=== PATIENT | male | born 1980 | race Caucasian/White ===

== ENCOUNTER → 2019-05-05 10:56 | Outpatient (CLI) | payer BC, SELFPAY ==
--- NOTE | 2019-05-05 11:11 | CT_ITS ---
CT elbow LT wo con INDICATION: Elbow pain following injury, inability to straighten elbow., Evaluate elbow fracture ITS.REASON: radial head fracture ORDERING PHYSICIAN: Domonique Lindsey MD PATIENT AGE: 38 years COMPARISON: 04/29/2019 TECHNIQUE: Axial images are obtained without contrast. Sagittal and coronal reformatted images are reviewed as well. All CT scans at the facility use one or more dose reduction, viz: automated exposure control, ma/kV adjustment per patient size (including targeted exams where dose is matched to indication, i.e. head), or iterative reconstruction technique. FINDINGS: There is comminuted fracture involving the radial head with minimal depression of the anterior fragment by 1 to 2 mm. The fracture extends into the the base of the radial head toward the neck of the radius anteriorly. There is a separate bony fragment noted which is linear in nature and measures approximately 8 x 2 mm and is situated at the lateral epicondyles. This is consistent with an avulsion fracture. The donor site and may be at the lateral aspect of the radial head articular surface as that part of the radius has a somewhat irregular appearance.. No other fracture is evident. There is soft tissue swelling dorsally and laterally at the elbow. IMPRESSION: Comminuted nondisplaced fracture at the radial head with only minimal depression. There is an avulsion fracture which is located along the lateral epicondylar region which may actually be from the lateral surface of the radial head.
== END ==
PROVIDERS: PCP Family Medicine; Visit Provider Orthopaedic Surgery
DX: S52.123A Displaced fracture of head of unspecified radius, initial encounter for closed fracture (principal)
CPT/HCPCS: 73200

== ENCOUNTER → 2019-05-19 12:17 | Outpatient (CLI) | payer BC, SELFPAY ==
--- NOTE | 2019-05-19 12:21 | XR_ITS ---
XR elbow LT min 3V HISTORY: Follow-up radial head fracture ITS.REASON: lt radial head fx ORDERING PHYSICIAN: Domonique Lindsey MD PATIENT AGE: 39 years COMPARISON: 04/29/2019 FINDINGS: Comminuted fracture involves radial head is again noted. The fracture is nondisplaced. There is good alignment. There is an avulsion fracture fragment which is at the lateral aspect of the elbow joint not significantly changed. Positive fat pad once again noted. IMPRESSION: Overall no change in the comminuted radial head fracture with an associated displaced avulsion fracture of the radial head
== END ==
PROVIDERS: PCP Family Medicine; Visit Provider Orthopaedic Surgery
DX: S52.125A Nondisplaced fracture of head of left radius, initial encounter for closed fracture (principal)
CPT/HCPCS: 73080

== ENCOUNTER → 2019-06-09 13:31 | Outpatient (CLI) | payer BC, SELFPAY ==
--- NOTE | 2019-06-09 13:36 | XR_ITS ---
XR elbow LT min 3V HISTORY: ITS.REASON: lt radial head fx ORDERING PHYSICIAN: Domonique Lindsey MD PATIENT AGE: 39 years COMPARISON: 04/29/2019. FINDINGS: There are some persistent displaced bone fragments lateral to the joint space. There are still linear fracture line involving the articular cortex of the radial head and the lateral neck of the radius. Alignment is anatomical. Bone density is normal. There is no indirect evidence of a joint effusion. Impression: Incomplete healing of the nondisplaced radial neck and head fracture. There is anatomic alignment of the fracture fragments and there is no abnormal angulation.
== END ==
PROVIDERS: PCP Family Medicine; Visit Provider Orthopaedic Surgery
DX: S52.122A Displaced fracture of head of left radius, initial encounter for closed fracture (principal)
CPT/HCPCS: 73080

== ENCOUNTER 2019-09-03 09:30 | Outpatient (RCR) | payer BC, SELFPAY ==
--- NOTE | 2019-05-14 16:06 | HMH.OTOPEV ---
OT Inpatient Evaluation Rehab OT Outpatient Eval Start: 05/14/19 15:52 Freq: Status: Active Protocol: Document 05/14/19 15:53 RMARSHALL ([facility]14[facility]19 [id number] Electronically Signed By Sofía Ray OT 05/14/19 15:53 Outpatient Therapy Subjective History Subjective History Pt is a 38 year old male who reports to therapy for initial evaluation to left elbow. Pt reports he fell down a flight of stairs (on 04/29/19) resulting in a radial head fracture to left elbow. Pt is left hand dominant. Pt has been in a sling since the injury. Pt demonstrates with decreased AROM and strength at left elbow. Pt will be seen twice a week in order to increase overall functional use. Chief Complaint Pain,Stiff,Weakness Symptom Type Ache,Throb,Sharp,Dull Symptoms Relieved By Rest/Positioning Symptoms Aggravated By Physical Activity,Twisting, Lifting Prior Functional Limitations None Current Functional Limitations Reaching,Lifting,Housework, Dressing,Driving,Sleeping, Recreation Activity Symptom Description Intermittent,Activity Dependent Level of pain today (0-10) 2 Pain scale - at its best (0-10) 0 Pain scale - at its worst (0-10) 8 Shoulder/Elbow Eval Shoulder Objective Measurements Elbow Objective Measurements Elbow ROM Left full ROM elbow exam standard right decreased ROM elbow exam standard left pain with active ROM elbow exam standard left pain with passive ROM elbow exam left standard Elbow Extension Active Range of Motion ( 0-46 degrees degrees) Elbow Extension Passive Range of Motion 0-40 degrees (degrees) Elbow Flexion Active Range of Motion ( 115 degrees degrees) Elbow Flexion Passive Range of Motion ( 125 degrees degrees) Elbow Pronation of Forearm Range of 60 degrees Motion (degrees) Elbow Supination of Forearm Range of 35 Motion (degrees) Elbow MMT Elbow Flexion Strength Grade 3 Fair Biceps Brachii Strength Grade 3 Fair Brachioradialis Strength Grade 3 Fair Brachialis Strength Grade 3 Fair Brachialis Strength Grade (Flexion) 3+ Fair+ Elbow Extension Strength Grade 3 Fair
--- NOTE | 2019-06-26 14:37 | HMH.RHREAS ---
Rehab Reassessment Rehab OP Re-assessment Start: 06/26/19 13:36 Freq: Status: Active Protocol: Document 06/26/19 13:36 TANISHA (Rec: 06/26/19 14:37 JAIROL [id number]) Electronically Signed By Sofía Ray OT 06/26/19 13:36 Rehab Re-assessment Subjective Subjective I do see improvements. Objective Objective Notes Pt continues to be seen twice a week in order to address L elbow deficits. Pt engages in L elbow strengthening exercises each session. Pt is also passively ranged a L elbow in supine in flexion, extension, supination, and pronation. Modalities are provided in order to decrease pain/inflammation at left elbow. Assessment Progress Assessment Progressing as Expected Assessment Notes Pt demonstrates improvement in AROM and strength at left elbow. However, pt continues to have most pain in flexion at left elbow. Pt believes he is currently 75% better since beginning therapy. As of now when his elbow does cause pain he rates it at a 4/10. Current L elbow AROM Flex: 132 Ext: 0-13 Sup: 90 Pro: 90 Patient goals met Short term goals have been met Goals Not Met penitentiary goals Revised Goals Review care home goals written on initial eval and continue progressing towards them. Plan Plan Continue with OT plan of care at this time. Frequency of Therapy 2x's a week Duration of therapy 4 more weeks Time and Billing Re-Eval Time 15 Re-Eval Billing Units 1 PHYSICIAN CERTIFICATION: I certify the specified therapy services for Anup Loredo are required, authorized, and reviewed every 30 days.
== END 2019-09-03 09:35 | disposition home or self-care (01) ==
LOC: OT 09:30
PROVIDERS: Visit Provider Orthopaedic Surgery
DX: S52.125A Nondisplaced fracture of head of left radius, initial encounter for closed fracture (principal)
CPT/HCPCS: 97014; 97110; 97140; 97164; 97166; G0283

== ENCOUNTER 2021-02-26 14:50 | Emergency (ER) | payer BC, SELFPAY ==
[2021-02-26 14:59] VITALS: BP 146/100; PULSE 76; RESP 14; TEMP 36.6; O2SAT 99; BMI 31.9
--- NOTE | 2021-02-26 15:07 | HMH.EDUTC ---
[facility] [place] Disposition Clinical Impression: Abdominal pain Qualifiers: Abdominal location: epigastric Qualified Code(s): R10.13 - Epigastric pain Disposition: Still a Patient Condition on Discharge: Good Instructions: DI for Abdominal Pain-Adult Additional Instructions: follow up with pcp may need egd if symptoms worsen or do not improve return or be seen in ed med as ordered Prescriptions: Famotidine [Pepcid 20mg Tablet] 20 mg PO DAILY #30 tab Prescription Printed Referrals: Mk Degroot MD [Primary Care Provider] - Time of Disposition: 15:26 (sent to ed for eval) Medical Decision Making - Bulmaro Inquiry Pt receiving controlled substance: No Vital Signs: 02/26/21 14:59 Temperature 97.8 F Temperature Source Temporal Artery Scan Pulse Rate [Right Brachial] 76 Respiratory Rate 14 Blood Pressure [Right Arm] 146/100 H Blood Pressure Mean [Right Arm] 115 Blood Pressure Source [Right Arm] Automatic Cuff Blood Pressure Position [Right Arm] Sitting 02 Sat by Pulse Oximetry 99 Oxygen Delivery Method Room Air [facility] [place] HPI - General Chief complaint: Urgent Treatment Center Stated complaint: abdominal pain Time Seen by Provider: 02/26/21 15:07 Mode of Arrival: Ambulatory Source of Information: Patient Limitations: No Limitations Description of Symptoms (Recalled from Triage Doc. by RN): abdomial pain for 1 year, but worse this morning HEENT Symptoms (Recalled from RN notes): No Resp Symptoms (Recalled from RN notes): No Skin Symptoms (Recalled from RN notes): No MS Symptoms (Recalled from RN notes): No Functional Status (Recalled from RN notes): n/a - History of Present Illness Provider Complaint: 40 yr old male presents for abdomial pain epigastric for 1 year off and on, but worse this morning. pt denies nausea and vomiting. pt states he has not eaten anything today. Pt states he woke up with abd cramping - Related Data Previous Rx's Medication Instructions Recorded Famotidine [Pepcid 20mg Tablet] 20 mg PO DAILY #30 tab 02/26/21 Allergies Allergy/AdvReac Type Severity Reaction Status Date / Time No Known Allergies Allergy Verified 02/26/21 14:56 - Worker's Comp Is this a Worker's Comp case?: No [facility] History - Hepatitis A Screen Drug use history?: No High risk sexual behaviors?: No History of sexually transmitted infection?: No Currently employed?: No Childcare worker?: No Do you have indoor plumbing?: Yes Do you have electricity?: Yes Attestation statement:: This patient has been screened for Hepatitis A risk factors. I have reviewed the patient's past medical history: Yes Medical History: Denies:: Cancer, Diabetes Mellitus Type 1, Diabetes Mellitus Type 2, MRSA Amputation: No - Social History Smoking Status: Never smoker Alcohol Intake: never Occupational Status: employed Housing: house Family Hx:: No significant family history ROS Obtained: Yes Systems reviewed as appropriate & no additional complaints - Constitutional Constitutional: Reports system reviewed and no additional complaints, except as docu, Denies chills, Denies fatigue, Denies fever(s) - Eyes Eyes: Reports system reviewed and no additional complaints, except as docu, Denies blurry vision - ENT Ears, Nose, Mouth, and Throat: Reports system reviewed and no additional complaints, except as docu, Denies bad breath - Cardiovascular Cardiovascular: Reports system reviewed and no additional complaints, except as docu, Denies chest pain at rest - Respiratory Respiratory: Reports system reviewed and no additional complaints, except as docu, Denies change in phlegm color - Gastrointestinal Gastrointestingal: Reports: system reviewed and no additional complaints, except as docu, abdominal pain, heartburn. Denies: nausea, vomiting - Genitourinary Male Genitourinary: Reports system reviewed and no additional complaints, except as docu - Musculoskeletal Musculoskeletal: Reports system reviewed and no a
--- NOTE | 2021-02-26 15:47 | CT_ITS ---
PROCEDURE: CT ABDOMEN PELVIS W CON CLINICAL INDICATION: LUQ abd pain Left upper quadrant abdominal pain COMPARISON: No exams were available for comparison TECHNIQUE: IV Contrast: 75ML Isovue 370 Oral Contrast None Axial images obtained with sagittal and coronal reformats. All CT scans at the facility use one or more dose reduction, viz: automated exposure control, ma/kV adjustment per patient size (including targeted exams where dose is matched to indication, i.e. head), or iterative reconstruction technique. FINDINGS: Liver, gallbladder, spleen, adrenal glands, pancreas, and kidneys have an unremarkable appearance. No renal or ureteral calculi. Minimal amount of gas noted in the distal esophagus which could be seen with reflux. No evidence of appendicitis. Scattered colonic diverticula are present. No evidence of diverticulitis. No pelvic mass or abnormal fluid collection. No acute bony findings. IMPRESSION: No acute finding Dictated by: Florencio Nloan MD 02/27/2021 07:55 Florencio Nolan MD in [place] 02/27/2021 07:55
--- NOTE | 2021-02-26 15:47 | HMH.EDABDPAI ---
ED Disposition Clinical Impression: GERD (gastroesophageal reflux disease) Qualifiers: Esophagitis presence: with esophagitis Esophagitis bleeding: without hemorrhage Qualified Code(s): K21.00 - Gastro-esophageal reflux disease with esophagitis, without bleeding Disposition: Home, Self-Care Condition on Discharge: Good Instructions: DI for Abdominal Pain-Adult Additional Instructions: follow up with pcp may need egd if symptoms worsen or do not improve return or be seen in ed med as ordered Prescriptions: Famotidine [Pepcid 20mg Tablet] 20 mg PO DAILY #30 tab Prescription Printed Referrals: Mk Degroot MD [Primary Care Provider] - - Critical Care Critical Care Time: No Attestation: On 02/26/21, the high probability of a clinically significant, sudden or life threatening deterioration of the following system(s) required my full and direct attention, intervention and personal management. The time I documented below is in addition to time spent performing reported procedures but includes the following listed in this critical care notation. Medical Decision Making - Medical Records Medical records reviewed: Yes: I reviewed the patient's medical records. - Bulmaro Inquiry Pt receiving controlled substance: No Vital Signs: 02/26/21 14:59 02/26/21 16:05 02/26/21 16:23 Temperature 97.8 F 98.3 F Temperature Source Temporal Artery Scan Oral Pulse Rate [Right Brachial] 76 60 58 L Respiratory Rate 14 18 18 Blood Pressure [Right Arm] 146/100 H 141/104 H 132/87 Blood Pressure Mean [Right Arm] 115 116 102 Blood Pressure Source [Right Arm] Automatic Cuff Automatic Cuff Blood Pressure Position [Right Arm] Sitting Sitting 02 Sat by Pulse Oximetry 99 98 96 Oxygen Delivery Method Room Air Room Air - Lab Data Lab results reviewed: Yes: I reviewed the patient's lab results. Lab Results 02/26/21 16:20: WBC 7.8, RBC 5.23, Hgb 16.5, Hct 48.6, MCV 92.8, MCH 31.5 H, MCHC 34.0, RDW 13.5, Plt Count 249, MPV 7.3 L, Neut % (Auto) 65.5, Lymph % (Auto) 25.5, [place] % (Auto) 6.9, Eos % (Auto) 1.4, Baso % (Auto) 0.8, Neut # (Auto) 5.1, Lymph # (Auto) 2.0, [place] # (Auto) 0.5, Eos # (Auto) 0.1, Baso # (Auto) 0.1 02/26/21 16:20: Sodium 141, Potassium 4.7, Chloride 107, Carbon Dioxide 29, Anion Gap 9.7, BUN 18, Creatinine 1.00, Estimated Creat Clear 134, Estimated GFR 83, Est GFR ( Amer) 101, Glucose 100, Calcium 9.5, Total Bilirubin 0.5, AST 28, ALT 30, Alkaline Phosphatase 75, Total Protein 7.4, Albumin 4.6, Globulin 2.8, Albumin/Globulin Ratio 1.6, Lipase 89 Result diagrams: 02/26/21 16:20 02/26/21 16:20 Orders (Tests/Meds): ED MEDICATIONS Generic Name Dose Route Start Last Admin Trade Name Freq PRN Reason Stop Dose Admin Sodium Chloride 10 ml 02/26/21 15:47 Sodium Chloride 0.9% 10ml Vial IV 03/28/21 15:46 NEEDED PRN dilute protonix Discontinued Medications Generic Name Dose Route Start Last Admin Trade Name Freq PRN Reason Stop Dose Admin Belladonna Alkaloids 60 ml 02/26/21 15:30 02/26/21 15:00 Gi Cocktail 60ml Udc PO 02/26/21 15:31 60 ml ONCE ONE Administration Dicyclomine HCl 20 mg 02/26/21 15:46 02/26/21 16:57 Dicyclomine 20 Mg/2ml Vial IM 02/26/21 15:47 20 mg ONCE ONE Administration Iopamidol 75 ml 02/26/21 16:29 02/26/21 16:30 Iopamidol-370 (76%);100ml Bottle IV 02/26/21 16:30 75 ml ONCE ONE Administration Ketorolac Tromethamine 30 mg 02/26/21 15:46 02/26/21 16:57 Ketorolac 30mg/Ml Vial IV 02/26/21 15:47 30 mg ONCE ONE Administration Pantoprazole Sodium 40 mg 02/26/21 15:47 02/26/21 16:57 Pantoprazole 40mg Vial IV 02/26/21 15:48 40 mg ONCE ONE Administration Sodium Chloride 10 ml 02/26/21 16:29 02/26/21 16:30 Sodium Chloride 0.9% 10ml Syr (Rad Only) IV 02/26/21 16:30 10 ml ONCE ONE Administration ORDERS Category Date Time Status CT abdomen pelvis w con Stat Cat Scan 02/26/21 15:47 Taken -
[2021-02-26 16:05] VITALS: BP 141/104; PULSE 60; RESP 18; TEMP 36.8; O2SAT 98; BMI 31.8
--- NOTE | 2021-02-26 16:21 | PC.NURSE ---
pt gone to ct
[2021-02-26 16:23] VITALS: BP 132/87; PULSE 58; RESP 18; O2SAT 96
[2021-02-26 16:29] LABS: Basophils # 0.1 K/mm3 (0-0.2); Basophils % 0.8 % (0.1-2.0); Eosinophils # 0.1 K/mm3 (0.0-0.4); Eosinophils % 1.4 % (0.1-12.0); Hematocrit 48.6 % (42.0-52.0); Hemoglobin 16.5 g/dL (14.1-18.0); Lymphocytes % 25.5 % (10-50); Mean Corpuscular Hemoglobin 31.5 pg (27.0-31.2); Mean Corpuscular Volume 92.8 fl (80-94); Mean Platelet Volume 7.3 fl (7.4-10.4); Monocytes # 0.5 K/mm3 (0.1-1.0); Monocytes % 6.9 % (1.7-9.3); Neutrophils # 5.1 K/mm3 (1.8-7.8); Neutrophils % 65.5 % (37.0-80.0); Platelet Count 249 K/mm3 (142-424); Red Blood Count 5.23 M/mm3 (4.60-6.20); Red Cell Distribution Width 13.5 % (11.5-17.5); White Blood Count 7.8 K/mm3 (4.8-10.8)
[2021-02-26 16:33] LABS: Chloride 107 mmol/L (98-107); Potassium 4.7 mmoL/L (3.5-5.1); Sodium 141 mmol/L (136-145)
[2021-02-26 16:35] LABS: Blood Urea Nitrogen 18 mg/dl (9-20); Creatinine Clearance Estimated 134 mL/min (50-200); Estimated Glomerular Filt Rate 83 ml/min (>60); GFR (African American) 101 ML/MIN (>60)
[2021-02-26 16:36] LABS: Alanine Aminotransferase 30 U/L (12-78); Albumin Level 4.6 g/dl (3.5-5.0); Albumin/Globulin Ratio 1.6 (1.1-1.8); Alkaline Phosphatase 75 U/L (38-126); Anion Gap 9.7 mEq/L (5-15); Aspartate Amino Transferase 28 U/L (17-59); Bilirubin,Total 0.5 mg/dl (0.2-1.3); Calcium 9.5 mg/dl (8.4-10.2); Carbon Dioxide 29 mmol/L (22.0-30.0); Globulin 2.8 g/dL (1.3-3.2); Glucose 100 mg/dl (74-100); Lipase 89 U/L (23-300); Total Protein,Serum 7.4 g/dl (6.3-8.2)
[2021-02-26 17:54] VITALS: BP 136/92; PULSE 57; RESP 18; TEMP 36.8; O2SAT 100
== END 2021-02-26 17:54 | disposition home or self-care (01) ==
LOC: UTC 15:28 → ER 15:32
PROVIDERS: Emergency Provider Emergency Medicine; PCP Family Medicine
DX: R10.13 Epigastric pain (principal); K21.9 Gastro-esophageal reflux disease without esophagitis
CPT/HCPCS: 74177; 80053; 83690; 85025; 96367; 96372; 96374; 99283; Q9967

== ENCOUNTER 2022-01-22 14:49 | Emergency (ER) | payer BC, SELFPAY ==
[2022-01-22 14:50] VITALS: BP 137/89; PULSE 85; RESP 19; TEMP 37.2; O2SAT 97; BMI 33.0
--- NOTE | 2022-01-22 15:11 | HMH.EDUTC ---
[facility] [place] Clinical Impression: L[place] U eye disease of both eyes Disposition: Home, Self-Care Condition on Discharge: Good Instructions: DI for Conjunctivitis Additional Instructions: follow up with pcp in am if symtpoms worsen return or be seen in ed Prescriptions: Sulfacetamide Sodium [Sulf-10% opth soln 15mL] 1 drp OP TID 7 Days #15 ml Transmission Status: Pending to [id number] Referrals: Mk Degroot MD [Primary Care Provider] - Time of Disposition: 15:16 Medical Decision Making - Bulmaro Inquiry Pt receiving controlled substance: No Vital Signs: 01/22/22 14:50 Temperature 98.9 F Temperature Source Oral Pulse Rate [Right Brachial] 85 Respiratory Rate 19 Blood Pressure [Right Arm] 137/89 Blood Pressure Mean [Right Arm] 105 Blood Pressure Source [Right Arm] Automatic Cuff Blood Pressure Position [Right Arm] Sitting 02 Sat by Pulse Oximetry 97 Oxygen Delivery Method Room Air [facility] [place] HPI - General Chief complaint: Urgent Treatment Center Stated complaint: bilateral eye pain and redness Time Seen by Provider: 01/22/22 15:11 Mode of Arrival: Ambulatory Source of Information: Patient Limitations: No Limitations Description of Symptoms (Recalled from Triage Doc. by RN): PATIENT C/O REDNESS AND SWELLING TO BILATERAL EYES SINCE LAST SUNDAY HEENT Symptoms (Recalled from RN notes): Yes Resp Symptoms (Recalled from RN notes): No Skin Symptoms (Recalled from RN notes): No MS Symptoms (Recalled from RN notes): No Functional Status (Recalled from RN notes): WNL - History of Present Illness Provider Complaint: 41 yr old male presents for chris red eyes with some discharge. pt states he has tried allergy med but it did not help. - Related Data Previous Rx's Medication Instructions Recorded Famotidine [Pepcid 20mg Tablet] 20 mg PO DAILY #30 tab 02/26/21 Sucralfate [Carafate 1gm Tab] 1 gm PO ACHS #60 tab 02/26/21 Sulfacetamide Sodium [Sulf-10% 1 drp OP TID 7 Days #15 ml 01/22/22 opth soln 15mL] Allergies Allergy/AdvReac Type Severity Reaction Status Date / Time No Known Allergies Allergy Verified 02/26/21 14:56 - Worker's Comp Is this a Worker's Comp case?: No [facility] History - Hepatitis A Screen Drug use history?: No High risk sexual behaviors?: No History of sexually transmitted infection?: No Currently employed?: No Childcare worker?: No Do you have indoor plumbing?: Yes Do you have electricity?: Yes Attestation statement:: This patient has been screened for Hepatitis A risk factors. I have reviewed the patient's past medical history: Yes Medical History: Denies:: Cancer, Diabetes Mellitus Type 1, Diabetes Mellitus Type 2, MRSA Amputation: No - Social History Smoking Status: Never smoker Alcohol Intake: never Occupational Status: employed Housing: house Family Hx:: No significant family history ROS Obtained: Yes Systems reviewed as appropriate & no additional complaints - Constitutional Constitutional: Reports system reviewed and no additional complaints, except as docu, Denies body ache, Denies fatigue - Eyes Eyes: Reports system reviewed and no additional complaints, except as docu, Denies blind spots, Denies blurry vision, Denies change in vision, Denies decreased night vision, Reports itchy eyes, Denies loss of peripheral vision, Denies loss of vision, Denies eye pain - ENT Ears, Nose, Mouth, and Throat: Reports system reviewed and no additional complaints, except as docu, Denies otalgia - Cardiovascular Cardiovascular: Reports system reviewed and no additional complaints, except as docu, Denies chest pain - Respiratory Respiratory: Reports system reviewed and no additional complaints, except as docu, Denies cough - Gastrointestinal Gastrointestingal: Reports: system reviewed and no additional complaints, except as docu. Denies: belching - Musculoskeletal Musculoskeletal: Reports system reviewed and no additional complaints, except as
[2022-01-22 15:20] VITALS: BP 137/89; PULSE 85; RESP 19; TEMP 37.2; O2SAT 97
== END 2022-01-22 15:23 | disposition home or self-care (01) ==
PROVIDERS: Emergency Provider Nurse Practitioner Family; PCP Family Medicine
DX: H10.9 Unspecified conjunctivitis (principal); Z79.899 Other long term (current) drug therapy
CPT/HCPCS: 99213; G0463

== ENCOUNTER → 2022-06-12 08:46 | Outpatient (CLI) | payer BC, SELFPAY ==
[2022-06-13 08:31] LABS: LH 4.2 mIU/mL (1.7-8.6)
[2022-06-15 17:09] LABS: Testosterone, Total, LC/MS 240.6 ng/dL (264.0-916.0); Testosterone,Free 6.3 pg/mL (6.8-21.5)
== END ==
PROVIDERS: PCP Family Medicine; Visit Provider Urology
DX: E29.1 Testicular hypofunction (principal)
CPT/HCPCS: 36415; 83002; 84402; 84403

== ENCOUNTER → 2024-05-08 08:33 | Outpatient (CLI) | payer BC, SELFPAY | LOC: SL 05-12 08:33 | PROVIDERS: PCP Family Medicine; Visit Provider Family Medicine | DX: G47.33 Obstructive sleep apnea (adult) (pediatric) (principal); G47.36 Sleep related hypoventilation in conditions classified elsewhere; R06.83 Snoring; E66.9 Obesity, unspecified | CPT/HCPCS: G0399 ==

== ENCOUNTER 2024-11-28 08:16 | Emergency (ER) | payer BC, SELFPAY ==
--- NOTE | 2024-11-28 08:22 | EXP.UTC ---
Discharge Plan Disposition Patient Disposition: Home, Self-Care Condition: Good Prescriptions Prescriptions: New benzonatate 100 mg capsule 100 mg PO TIDP PRN (Reason: Cough) Qty: 30 0RF methylprednisolone 4 mg Tablets,Dose Pack 4 mg PO DIRECTED 6 Days Qty: 21 0RF Rx Instructions: Take 1 pack as directed for 6 days amoxicillin-pot clavulanate 875-125 mg Tablet 1 tab PO Q12H Qty: 20 0RF No Action levothyroxine 50 mcg capsule 50 mcg PO DAILY fenofibrate 160 mg tablet 160 mg PO DAILY Wegovy 2.4 mg/0.75 mL pen injector SQ Patient Comments: INJECT 1 SYRINGE SUBCUTANEOUSLY ONCE A WEEK multivitamin [One-A-Day Essential] Tablet 1 tab PO DAILY omeprazole 20 mg capsule,delayed release(DR/EC) 20 mg PO DAILY Patient Comments: TAKE ONE CAPSULE BY MOUTH ONE-HALF TO 1 HOUR BEFORE MORNING MEAL ONCE A DAY FOR 90 DAYS Referrals Follow up/Referrals: Mk Degroot MD [Primary Care Provider] - See instructions Activity Restrictions/Add. Instructions Additional Instructions/Restrictions: Drink plenty of fluids. Take tylenol or ibuprofen for pain or fever. Take the medications as directed. Follow up with your regular doctor. GO TO THE ER FOR ANY WORSENING SYMPTOMS Clinical Impressions Clinical Impression: Acute bronchitis Instructions Patient Instructions: Acute Bronchitis, DI for Acute Bronchitis, Prednisone, Amoxicillin and Clavulanic Acid Print Language Print Language: Cook Islander Discharge ED Provider: Inocente Cuadra [facility] [place] HPI General Stated complaint: cough Time Seen by Provider: 11/28/24 08:22 History of Present Illness Provider Complaint: He states that for the past 1 week he has had productive cough, chest congestion, sinus congestion and ear pain. Related Data Home Medications ?Medication ?Instructions ?Recorded ?Confirmed fenofibrate 160 mg tablet 160 mg PO DAILY 11/28/24 11/28/24 levothyroxine 50 mcg tablet 50 mcg PO DAILY 11/28/24 11/28/24 omeprazole 40 mg capsule,delayed 40 mg PO DAILY 11/28/24 11/28/24 release semaglutide (weight loss) 2.4 2.4 mg SQ WEEKLY 11/28/24 11/28/24 mg/0.75 mL subcutaneous pen injector (Wegovy) Previous Rx's ?Medication ?Instructions ?Recorded amoxicillin 875 mg-potassium 1 tab PO Q12H #20 tabs 11/28/24 clavulanate 125 mg tablet benzonatate 100 mg capsule 100 mg PO TIDP PRN Cough #30 caps 11/28/24 methylprednisolone 4 mg tablets in 4 mg PO DIRECTED 6 days #21 tabs 11/28/24 a dose pack Allergies Allergy/AdvReac Type Severity Reaction Status Date / Time No Known Allergies Allergy Verified 10/21/24 07:11 [facility] [place] Disclaimer: The information contained in this section may have been updated after the patient was seen, as this information can be updated by other users. Medical History MADELIN (obstructive sleep apnea) Shifting sleep-work schedule Shift work sleep disorder GERD (gastroesophageal reflux disease) Testosterone deficiency Diverticulosis Vitamin D deficiency Hypothyroid Hyperlipidemia Surgical History H/O wisdom tooth extraction Family History Other Hypothyroidism Social History Smoking Status: Never smoker alcohol intake: never substance use type: denies use current occupational status: employed Travel in the last 8 weeks: None household members: spouse housing: house marital status: Have you lived/traveled outside US in past 30 days?: No Contact w/someone who lives/traveled outside US past 30 days?: No Exposure to someone with infectious disease in past 14 days?: No Do you have a fever (greater than 100.4 F or 38 C)?: No Have you tested positive for COVID-19: No Exposed to someone with COVID-19 in past 14 days?: No Do you have a sore throat?: No Do you have a cough?: Yes Do you have any weakness?: No Do you have any diarrhea?: No Are you experiencing any unusual bleeding?: No Do you have any muscle aches/pain?: No Do you have any abdominal pain?: No Are you experiencing loss of taste or smell?: No ROS Obtained: Yes All systems reviewed & no additional complaints except as documented Constitutional Constitutional: Reports poor appetite Eyes Eyes: Reports system reviewed and no additional complaints, except as documented ENT Ears, Nose, Mouth, and Throat: Reports as per HPI Cardiovascular Cardiovascular: Reports system reviewed and no additional complaints, except as documented and Denies chest pain Respiratory Respiratory: Denies shortness of breath, Reports chest congestion, Reports cough, Denies stridor and Denies wheezing Gastrointestinal Gastrointestingal: Reports system reviewed and no additional complaints, except as documented; Denies abdominal pain, diarrhea or vomiting Musculoskeletal Musculoskeletal: Reports system reviewed and no additional complaints, except as documented and Denies arthralgias Integumentary/Breasts Skin/Breast: Reports system reviewed and no additional complaints, except as documented and Denies rash Neurologic Neurologic: Denies paresthesias Allergic/Immunologic Allergic/Immunologic: Denies wheezing Physical Exam General General appearance: alert and in no apparent distress Eye Eye exam: Present normal appearance, PERRL and EOMI ENT ENT exam: Present mucous membranes moist and normal external ear exam Expanded ENT Exam External ear exam: Present normal external inspection TM/Canal exam: Bilateral TM: erythema and bulging Nose exam: Absent sinus tenderness Nasal speculum exam: Bilateral: normal Mouth exam: Present normal external inspection; Absent drooling Teeth exam: Present normal inspection Throat exam: Present tonsillar erythema and tonsillomegaly Neck Neck exam: Present normal inspection, full ROM and trachea midline; Absent tenderness, lymphadenopathy or thyromegaly Chest Chest inspection: Present normal inspection and symmetric chest wall rise; Absent tenderness or rash Respiratory Respiratory exam: Present normal lung sounds bilaterally; Absent respiratory distress, wheezes, stridor or accessory muscle use Cardiovascular Cardiovascular exam: Present regular rate, normal rhythm and normal heart sounds Abdominal Exam Abdominal exam: Present soft; Absent distention, tenderness, guarding, rebound or rigidity Extremities Exam Extremities exam: Present normal inspection, full ROM and normal capillary refill; Absent tenderness or calf tenderness Back Exam Back exam: Present normal inspection and full ROM; Absent tenderness Neurological Exam Neurological exam: Present alert and oriented X3 Psychiatric Psychiatric exam: Present normal affect and normal mood Skin Skin exam: Present warm, dry, intact and normal color Lymphatic Lymphatic Findings: no adenopathy Medical Decision Making Medical Records Medical records reviewed: No I reviewed the patient's medical records. Screening: Per USPSTF and CDC recommendations, given the prevalence of disease in our region, it is our hospital?s policy to screen for HIV and viral Hepatitis for all patients aged 18 and over and those with ongoing risk factors. Bulmaro Inquiry Pt receiving controlled substance: No Lab Data Lab results reviewed: Yes I reviewed the patient's lab results.
[2024-11-28 08:25] VITALS: BP 135/88; PULSE 85; RESP 20; TEMP 36.6; O2SAT 98; BMI 34.7
[2024-11-28 08:39] VITALS: BP 135/88; PULSE 85; RESP 20; TEMP 36.6; O2SAT 98
== END 2024-11-28 08:43 | disposition home or self-care (01) ==
PROVIDERS: Emergency Provider Nurse Practitioner Family; PCP Family Medicine
DX: J20.9 Acute bronchitis, unspecified (principal)
CPT/HCPCS: 99213; G0381

== ENCOUNTER 2025-03-14 04:44 | Emergency (ER) | payer BC, SELFPAY ==
[2025-03-14 04:48] VITALS: BP 118/92; PULSE 85; TEMP 36.4; O2SAT 99
[2025-03-14 04:53] VITALS: BP 118/92; PULSE 77; RESP 18; TEMP 36.4; O2SAT 99; BMI 32.6
--- NOTE | 2025-03-14 04:53 | CT_ITS ---
PROCEDURE INFORMATION: Exam: CT Abdomen And Pelvis With Contrast Exam date and time: 03/14/2025 5:25 AM Age: 44 years old Clinical indication: Abdominal pain; Other: Luq; Additional info: Left upper quadrant pain TECHNIQUE: Imaging protocol: Computed tomography of the abdomen and pelvis with contrast. Radiation optimization: All CT scans at this facility use at least one of these dose optimization techniques: automated exposure control; mA and/or kV adjustment per patient size (includes targeted exams where dose is matched to clinical indication); or iterative reconstruction. Contrast material: ISOVUE; Contrast volume: 75 ml; Contrast route: IV; COMPARISON: CT ABDOMEN PELVIS W CON 02/26/2021 4:23 PM FINDINGS: Liver: Normal. No mass. Gallbladder and biliary ducts: Cholelithiasis. Pancreas: Normal. No ductal dilation. Spleen: Normal. No splenomegaly. Adrenal glands: Normal. No mass. Kidneys and ureters: Normal. No hydronephrosis. Stomach and bowel: Rare diverticuli sigmoid. Mild chronic appearing fatty thickening of the colon, this can be seen as a chronic finding in patients with recurrent bouts of inflammation. Appendix: No evidence of appendicitis. Intraperitoneal space: Unremarkable. No free air. No significant fluid collection. Vasculature: Unremarkable. No abdominal aortic aneurysm. Lymph nodes: Unremarkable. No enlarged lymph nodes. Urinary bladder: Unremarkable as visualized. Reproductive: Unremarkable as visualized. Bones/joints: Unremarkable. No acute fracture. Soft tissues: Unremarkable. IMPRESSION: Mild chronic appearing fatty thickening of the colon. No definite acute inflammation appreciated. Cholelithiasis.
[2025-03-14] MEDS: BELLADONNA ALKALOIDS 60 ML ML PO (04:57)
[2025-03-14 04:58] VITALS: BP 116/85; PULSE 78; O2SAT 99
[2025-03-14] MEDS: ONDANSETRON 4MG/2ML VIAL 4 MG IV (04:58)
[2025-03-14] MEDS: ACETAMINOPHEN 500MG TAB 1000 MG PO (04:58)
--- NOTE | 2025-03-14 05:00 | HMH.EDGENADL ---
Discharge Plan Disposition Patient Disposition: Home, Self-Care Prescriptions Prescriptions: No Action omeprazole 40 mg capsule,delayed release(DR/EC) 40 mg PO DAILY Patient Comments: TAKE 1 CAPSULE BY MOUTH ONCE DAILY levothyroxine 50 mcg tablet 50 mcg PO DAILY Patient Comments: TAKE 1 TABLET BY MOUTH ONCE DAILY fenofibrate 160 mg tablet 160 mg PO DAILY Patient Comments: TAKE 1 TABLET BY MOUTH ONCE DAILY Wegovy 2.4 mg/0.75 mL pen injector 2.4 mg SQ WEEKLY Patient Comments: INJECT 1 SYRINGE SUBCUTANEOUSLY ONCE A WEEK benzonatate 100 mg capsule 100 mg PO TIDP PRN (Reason: Cough) Qty: 30 0RF methylprednisolone 4 mg Tablets,Dose Pack 4 mg PO DIRECTED 6 Days Qty: 21 0RF Rx Instructions: Take 1 pack as directed for 6 days amoxicillin-pot clavulanate 875-125 mg Tablet 1 tab PO Q12H Qty: 20 0RF Referrals Follow up/Referrals: Darell Luis II, MD [Staff Physician] - See instructions Provider,MD Parvin [Primary Care Provider] - See instructions Activity Restrictions/Add. Instructions Additional Instructions/Restrictions: Please follow-up with your primary care provider. Recommend calling to follow-up with our GI doctor, Dr. Luis. Recommend starting famotidine. Please return to the emergency department if you develop any new or worsening symptoms or become concerned for your health. Clinical Impressions Clinical Impression: Abdominal pain, left upper quadrant Instructions Patient Instructions: DI for Acute Abdominal Pain Print Language Print Language: B[place]ian Discharge ED Provider: Daquan Butterfield Adult HPI General Chief complaint: Abdominal Pain Stated complaint: L side abd pain, nausea Time Seen by Provider: 03/14/25 04:45 Mode of Arrival: Ambulatory Source of Information: Patient Description of Symptoms (Recalled from ER Triage Doc. by RN): Pt presents with c/o LUQ pain that began approx 0230 this AM with associated nausea. Pt denies fevers. History of Present Illness HPI narrative: 44-year-old male with history of GERD, hypothyroidism, diverticulosis presents for left upper quadrant pain. He has had on and off for some time. He reports he is on omeprazole and his PCP thinks it could be a stomach ulcer. He denies any fever or chills nausea or vomiting. Denies any chest pain or shortness of breath. He had a bowel movement prior to coming and it did not improve his symptoms. Related Data Home Medications ?Medication ?Instructions ?Recorded ?Confirmed fenofibrate 160 mg tablet 160 mg PO DAILY 11/28/24 11/28/24 levothyroxine 50 mcg tablet 50 mcg PO DAILY 11/28/24 11/28/24 omeprazole 40 mg capsule,delayed 40 mg PO DAILY 11/28/24 11/28/24 release semaglutide (weight loss) 2.4 2.4 mg SQ WEEKLY 11/28/24 11/28/24 mg/0.75 mL subcutaneous pen injector (Wegovy) Previous Rx's ?Medication ?Instructions ?Recorded amoxicillin 875 mg-potassium 1 tab PO Q12H #20 tabs 11/28/24 clavulanate 125 mg tablet benzonatate 100 mg capsule 100 mg PO TIDP PRN Cough #30 caps 11/28/24 methylprednisolone 4 mg tablets in 4 mg PO DIRECTED 6 days #21 tabs 11/28/24 a dose pack Allergies Allergy/AdvReac Type Severity Reaction Status Date / Time No Known Allergies Allergy Verified 10/21/24 07:11 [facility] Disclaimer: The information contained in this section may have been updated after the patient was seen, as this information can be updated by other users. Medical History MADELIN (obstructive sleep apnea) Shifting sleep-work schedule Shift work sleep disorder GERD (gastroesophageal reflux disease) Testosterone deficiency Diverticulosis Vitamin D deficiency Hypothyroid Hyperlipidemia Surgical History H/O wisdom tooth extraction Family History Other Hypothyroidism Social History Smoking Status: Never smoker alcohol intake: never substance use type: denies use current occupational status: employed Travel in the last 8 weeks: None household members: spouse housing: house marital status: Have you lived/traveled outside US in past 30 days?: No Contact w/someone who lives/traveled outside US past 30 days?: No Exposure to someone with infectious disease in past 14 days?: No Do you have a fever (greater than 100.4 F or 38 C)?: No Have you tested positive for COVID-19: No Exposed to someone with COVID-19 in past 14 days?: No Do you have a sore throat?: No Do you have a cough?: No Do you have any weakness?: No Do you have any diarrhea?: No Are you experiencing any unusual bleeding?: No Do you have any muscle aches/pain?: No Do you have any abdominal pain?: Yes Are you experiencing loss of taste or smell?: No Other Medical History Have you received the Flu Vaccine for this season: No Have you received the Pneumonia Vaccine: No ROS Obtained: Yes All systems reviewed & no additional complaints except as documented Physical Exam General General appearance: alert and in no apparent distress Head Head exam: atraumatic and normocephalic Eye Eye exam: Present normal appearance, PERRL and EOMI ENT ENT exam: Present normal oropharynx and normal external ear exam Neck Neck exam: Present normal inspection and full ROM Chest Chest inspection: Present normal inspection and symmetric chest wall rise; Absent tenderness Respiratory Respiratory exam: Present normal lung sounds bilaterally; Absent respiratory distress Cardiovascular Cardiovascular exam: Present regular rate and normal rhythm Abdominal Exam Abdominal exam: Present soft and tenderness (Mild, left upper quadrant); Absent distention or guarding Extremities Exam Extremities exam: Present normal inspection; Absent edema or joint swelling Back Exam Back exam: Present normal inspection; Absent tenderness Neurological Exam Neurological exam: Present alert and oriented X3; Absent motor sensory deficit Psychiatric Psychiatric exam: Present normal affect and normal mood Skin Skin exam: Present warm, dry and normal color Lymphatic Lymphatic Findings: no adenopathy Medical Decision Making Medical Records Medical records reviewed: Yes I reviewed the patient's medical records. Screening: Per USPSTF and CDC recommendations, given the prevalence of disease in our region, it is our hospital?s policy to screen for HIV and viral Hepatitis for all patients aged 18 and over and those with ongoing risk factors. Bulmaro Inquiry Pt receiving controlled substance: No Bulmaro was queried for this patient: No Vital Signs: 03/14/25 04:48 03/14/25 04:53 03/14/25 04:58 Temperature 97.6 F 97.6 F Temperature Source Oral Pulse Rate 85 78 Pulse Rate [Radial] 77 Respiratory Rate 18 Blood Pressure 118/92 H 116/85 Blood Pressure [Right Arm] 118/92 H Blood Pressure Mean 93 Blood Pressure Mean [Right Arm] 100 Blood Pressure Position [Right Arm] Sitting 02 Sat by Pulse Oximetry 99 99 99 Oxygen Delivery Method Room Air 03/14/25 06:02 03/14/25 06:08 Temperature 97.8 F Temperature Source Pulse Rate 78 88 Pulse Rate [Radial] Respiratory Rate 18 16 Blood Pressure 137/96 H 133/68 Blood Pressure [Right Arm] Blood Pressure Mean 108 Blood Pressure Mean [Right Arm] Blood Pressure Position [Right Arm] 02 Sat by Pulse Oximetry 98 Oxygen Delivery Method Room Air Lab Data Lab results reviewed: Yes I reviewed the patient's lab results. Lab Results 03/14/25 04:58: WBC 11.0 H, RBC 4.86, Hgb 15.3, Hct 45.0, MCV 92.6, MCH 31.5 H, MCHC 34.0, RDW 12.3, Plt Count 284, MPV 8.8, Neut % (Auto) 62.6, Lymph % (Auto) 27.9, [place] % (Auto) 7.6, Eos % (Auto) 0.9, Baso % (Auto) 0.5, Neut # (Auto) 6.9, Lymph # (Auto) 3.1, [place] # (Auto) 0.8, Eos # (Auto) 0.1, Baso # (Auto) 0.1, Sodium 140, Potassium 3.8, Chloride 106, Carbon Dioxide 25, Anion Gap 12.8, BUN 17, Creatinine 1.20, Estimated Creat Clear 109, Estimated GFR 66, Est GFR ( Amer) 80, Glucose 118 H, Calcium 9.3, Magnesium 1.8, Total Bilirubin 0.4, AST 36, ALT 30, Alkaline Phosphatase 57, Total Protein 7.2, Albumin 4.5, Globulin 2.7, Albumin/Globulin Ratio 1.7, Lipase 113, HCV Ab GRACIA w/Rflx PCR Qn Negative, HIV Ag/Ab Combo Qual Negative 03/14/25 05:45: Urine Color Yellow, Urine Appearance Clear, Urine pH 6.5, Ur Specific [place] 1.020, Urine Protein Negative, Urine Glucose (UA) Negative, Urine Ketones Negative, Urine Blood Negative, Urine Nitrate Negative, Urine Bilirubin Negative, Urine Urobilinogen 0.2, Ur Leukocyte Esterase Negative, Urine RBC None, Urine WBC None, Ur Squamous Epith Cells Occasional, Urine Bacteria None 03/14/25 04:58 03/14/25 04:58 Orders (Tests/Meds): ED MEDICATIONS Discontinued Medications Generic Name Dose Route Start Last Admin Trade Name Freq PRN Reason Stop Dose Admin Acetaminophen 1,000 mg 03/14/25 04:53 03/14/25 04:58 Acetaminophen 500mg Tab PO 03/14/25 04:54 1,000 mg ONCE ONE Administration Belladonna Alkaloids 60 ml 03/14/25 04:53 03/14/25 04:57 Belladonna Alkaloids 60 Ml Ml PO 03/14/25 04:54 60 ml ONCE ONE Administration Iopamidol 75 ml 03/14/25 05:31 03/14/25 05:32 Iopamidol-370 (76%);100ml Bottle IV 03/14/25 05:32 75 ml ONCE ONE Administration Ondansetron HCl 4 mg 03/14/25 04:53 03/14/25 04:58 Ondansetron 4mg/2ml Vial IV 03/14/25 04:54 4 mg ONCE ONE Administration Sodium Chloride 10 ml 03/14/25 05:31 03/14/25 05:32 Sodium Chloride 0.9% 10ml Syr (Rad Only) IV 03/14/25 05:32 10 ml ONCE ONE Administration ORDERS Category Date Time Status CT abdomen pelvis w con Stat Cat Scan 03/14/25 04:53 Completed CBC w/Auto Diff [Complete Blood Count Auto Diff] Stat Lab 03/14/25 04:58 Completed CMP [Comprehensive Metabolic Panel] Stat Lab 03/14/25 04:58 Completed HIV Combo Stat Lab 03/14/25 04:58 Completed Hepatitis C Ab Qual. W/ RFX Stat Lab 03/14/25 04:58 Completed Lipase Stat Lab 03/14/25 04:58 Completed Magnesium Stat Lab 03/14/25 04:58 Completed Urinalysis and Microscopic Stat Lab 03/14/25 05:45 Completed Medical Decision Narrative: 44-year-old male with history of GERD hypertension, diverticulosis, presents for left upper quadrant pain. History was obtained via interactive discussion with patient, chart review. On arrival, patient is [afebrile, hemodynamically stable, satting appropriately, alert, oriented x4, GCS 15], moving all extremities spontaneously. Full physical exam performed and significant for mild left lower quadrant tenderness. Clear lungs bilaterally. No epigastric tenderness. Differential includes but is not limited to gastric ulcer, gastric perforation, constipation, diverticulitis, pancreatitis, medication side effect of Wegovy. Patient was given Tylenol, GI cocktail, Zofran for symptomatic management and correction of underlying abnormalities. Workup initiated including EKG CBC CMP lipase CT abdomen pelvis with IV contrast. On re-evaluation, patient [remains afebrile, HD stable.] He reports that the symptoms transiently improved with a GI cocktail. Laboratory workup independently interpreted by me and significant for no significant leukocytosis, no elevation in the lipase, normal liver enzyme. Imaging independently interpreted by me and significant for no free air, diverticulitis, or obvious abnormality of the stomach.. See radiology read for full review of final results. EKG independently interpreted by me and significant for normal sinus rhythm, rate of 73, no ischemic changes noted, no evidence of arrhythmia.. Given patient history, exam and workup, patient's presentation most likely represents possible gastritis/gastric pathology. Recommended patient initiate famotidine in addition to his omeprazole and call and get into see Dr. Luis. Return precautions given.. Procedures Risk/Benefits of Procedure(s) Were Explained: Yes Critical Care Critical Care Time Critical Care Time: No
[2025-03-14 05:06] LABS: Basophils # 0.1 K/mm3 (0-0.2); Basophils % 0.5 % (0.1-2.0); Eosinophils # 0.1 Kmm3 (0.0-0.4); Eosinophils % 0.9 % (0.1-12.0); Hemoglobin 15.3 g/dL (14.1-18.0); Lymphocytes # 3.1 K/mm3 (0.7-4.5); Lymphocytes % 27.9 % (10-50); Mean Corpuscular Hemoglobin 31.5 pg (27.0-31.2); Mean Corpuscular Volume 92.6 fl (80-94); Mean Platelet Volume 8.8 fl (7.4-10.4); Monocytes # 0.8 K/mm3 (0.1-1.0); Monocytes % 7.6 % (1.7-9.3); Neutrophils # 6.9 K/mm3 (1.8-7.8); Neutrophils % 62.6 % (37.0-80.0); Nucleated Red Blood Cells # 0 10^3/uL; Nucleated Red Blood Cells % 0 %; Platelet Count 284 K/mm3 (142-424); Red Blood Count 4.86 M/mm3 (4.60-6.20); Red Cell Distribution Width 12.3 % (11.5-17.5); Red Cell Distribution Width-SD 42.2 fL
[2025-03-14 05:13] LABS: Albumin Level 4.5 g/dl (3.5-5.0); Chloride 106 mmol/L (98-107); Potassium 3.8 mmoL/L (3.5-5.1); Sodium 140 mmol/L (136-145)
--- NOTE | 2025-03-14 05:14 | ECG_ITS ---
APPROVED REPORT Exam: Resting ECG HR:73 bpm ECG Measurements Heart Rate 73 AXES MO 197 P 49 QRSd 97 QRS 72 QT 353 T 72 QTc 379 Conclusion SINUS RHYTHM WITH SINUS ARRHYTHMIA LOW QRS VOLTAGE IN PRECORDIAL LEADS [QRS DEFLECTION < 1.0 mV IN CHEST LEADS] PATTERN CONSISTENT WITH PULMONARY DISEASE ABNORMAL ECG UNCONFIRMED REPORT Electronically signed by : JOSEPHINE COLLINS, 03/16/2025 03:46:54
[2025-03-14 05:16] LABS: Alanine Aminotransferase 30 U/L (12-78); Albumin/Globulin Ratio 1.7 (1.1-1.8); Alkaline Phosphatase 57 U/L (38-126); Anion Gap 12.8 mEq/L (5-15); Aspartate Amino Transferase 36 U/L (17-59); Bilirubin,Total 0.4 mg/dl (0.2-1.3); Blood Urea Nitrogen 17 mg/dl (9-20); Calcium 9.3 mg/dl (8.4-10.2); Carbon Dioxide 25 mmol/L (22.0-30.0); Creatinine Clearance Estimated 109 mL/min (50-200); Estimated Glomerular Filt Rate 66 ml/min (>60); GFR (African American) 80 ML/MIN (>60); Globulin 2.7 g/dL (1.3-3.2); Glucose 118 mg/dl (74-100); Lipase 113 U/L (23-300); Magnesium 1.8 mg/dl (1.6-2.3); Total Protein,Serum 7.2 g/dl (6.3-8.2)
--- NOTE | 2025-03-14 05:30 | PC.NURSE ---
pt taken to and brought back from ct scan without incident.
[2025-03-14] MEDS: IOPAMIDOL-370 (76%);100ML BOTTLE 75 ML IV (05:32)
[2025-03-14] MEDS: SODIUM CHLORIDE 0.9% 10ML SYR (RAD ONLY) 10 ML IV (05:32)
--- NOTE | 2025-03-14 05:44 | PC.NURSE ---
pt ambulatory to and from restroom with slow steady gait.
[2025-03-14 05:49] LABS: Microscopic, Urine URINE MICROSCOPIC (MICROSCOPIC)
[2025-03-14 05:55] LABS: Appearance,Urine CLEAR (Clear); Bilirubin,Urine Negative (Negative); Blood, Urine Negative (Negative); Color,Urine YELLOW (Yellow); Glucose,Urine (UA) Negative (Negative); Ketones,Urine Negative (Negative); Leukocyte Esterase,Urine Negative (Negative); Nitrate,Urine Negative (Negative); PH,Urine 6.5 (5.0-8.5); Protein,Urine Negative (Negative); Urobilinogen,Urine 0.2 EU/dl (0.2)
[2025-03-14 05:57] LABS: HIV Combo NEGATIVE (Negative)
[2025-03-14 06:02] VITALS: BP 137/96; PULSE 78; RESP 18; O2SAT 98
[2025-03-14 06:05] LABS: Hepatitis C Ab Qual. W/ RFX NEGATIVE (Negative)
[2025-03-14 06:06] LABS: Squamous Epithelial Cell,Urine Occasional #/hpf (0-5)
[2025-03-14 06:08] VITALS: BP 133/68; PULSE 88; RESP 16; TEMP 36.6; O2SAT 100
== END 2025-03-14 06:09 | disposition home or self-care (01) ==
PROVIDERS: Emergency Provider Emergency Medicine
DX: R10.12 Left upper quadrant pain (principal); R11.0 Nausea; Z11.59 Encounter for screening for other viral diseases; Z11.4 Encounter for screening for human immunodeficiency virus [HIV]
CPT/HCPCS: 74177; 80053; 81001; 83690; 83735; 85025; 86803; 87389; 93005; 96374; 99285; J2405; Q9967

== ENCOUNTER → 2025-07-01 06:59 | Day surgery (SDC) | payer BC, SELFPAY ==
[2025-06-30 09:18] VITALS: BMI 33.4
--- NOTE | 2025-06-30 13:05 | EXP.HP ---
History of Present Illness *Admission Date: 07/01/25 *Reason for visit:: Bright red blood per rectum *History of present illness: Mr. Loredo is a 45-year-old gentleman who is here for diagnostic EGD and colonoscopy secondary to epigastric/left upper quadrant abdominal pain and bright red blood per rectum. The examination is deemed medically necessary for diagnostic EGD and colonoscopy. The patient has been seen, interviewed and examined prior to the procedure by both myself and the anesthesia provider. [facility] Disclaimer: The information contained in this section may have been updated after the patient was seen, as this information can be updated by other users. Medical History MADELIN (obstructive sleep apnea) Shifting sleep-work schedule Shift work sleep disorder GERD (gastroesophageal reflux disease) Testosterone deficiency Diverticulosis Vitamin D deficiency Hypothyroid Hyperlipidemia Surgical History H/O wisdom tooth extraction Family History Other Hypothyroidism Social History Smoking Status: Never smoker alcohol intake: never substance use type: denies use current occupational status: employed Travel in the last 8 weeks?: None household members: spouse housing: house marital status: Have you lived/traveled outside [place] in past 30 days?: No Contact w/someone who lives/traveled outside [place] past 30 days?: No Exposure to someone with infectious disease in past 14 days?: No Do you have a fever (greater than 100.4 F or 38 C)?: No Have you tested positive for COVID-19?: No Exposed to someone with COVID-19 in past 14 days?: No Do you have a sore throat?: No Do you have a cough?: No Do you have any weakness?: No Do you have any diarrhea?: No Are you experiencing any unusual bleeding?: No Do you have any muscle aches/pain?: No Do you have any abdominal pain?: No Are you experiencing loss of taste or smell?: No Other Medical History Have you received the Flu Vaccine for this season: No Have you received the Pneumonia Vaccine: No Review of Systems Review of Systems Review of systems (narrative): Negative *Cardiovascular Comments: Negative *Gastrointestinal Comments: Negative *Genitourinary Comments: Negative *Musculoskeletal Comments: Negative *Neurologic Comments: Negative Meds Home Medications and Allergies Home Medications ?Medication ?Instructions ?Recorded ?Confirmed ?Type fenofibrate 160 mg tablet 160 mg PO DAILY 11/28/24 07/01/25 History levothyroxine 50 mcg tablet 50 mcg PO DAILY 11/28/24 07/01/25 History cholecalciferol (vitamin D3) 250 250 mcg PO DAILY 04/16/25 07/01/25 History mcg (10,000 unit) capsule famotidine 20 mg tablet (Acid 20 mg PO DAILY 04/16/25 07/01/25 History Broadcast Transmitter Operator (famotidine)) omeprazole 20 mg capsule,delayed 20 mg PO DAILY 05/07/25 07/01/25 History release armodafinil 150 mg tablet (Nuvigil) 150 mg PO DAILY Shift Work 06/30/25 07/01/25 History Disorder, Hypersomnia, MADELIN New Prescriptions to Start Prescriptions: Allergies Allergy/AdvReac Type Severity Reaction Status Date / Time No Known Allergies Allergy Verified 07/01/25 07:42 Exam Data for Last 24 hours I & O for Last 24 hours: Intake & Output 06/27/25 06/28/25 06/29/25 06/30/25 23:59 23:59 23:59 23:59 Weight 220 lb *Routine HEENT Exam Head: Present normocephalic Eye: Present EOMI and PERRL ENT: Present mucous membranes moist *Routine Neck Exam Neck: Present supple *Routine Respiratory Exam Respiratory: Present CTA bilaterally *Routine Cardiovascular Exam Cardiovascular: Present RRR *Routine Abdominal Exam Abdominal: Present soft and normoactive bowel sounds; Absent tenderness *Routine Rectal Exam Rectal:: deferred *Routine Genitalia Exam Genitalia:: deferred *Routine Extremities Exam Extremities: Absent cyanosis, clubbing or edema *Routine Skin Exam Skin: Present warm; Absent rash *Routine Neurological Exam Neurological: Present alert and oriented X3 Assessment and Plan *Assessment and plan (1) Bright red blood per rectum: Status: Acute Category: Medical Code(s): K62.5 - Hemorrhage of anus and rectum (2) Rectal pain: Status: Acute Category: Medical Code(s): K62.89 - Other specified diseases of anus and rectum (3) Epigastric pain: Status: Acute Category: Medical Code(s): R10.13 - Epigastric pain (4) Abdominal pain, left upper quadrant: Status: Acute Category: Medical Code(s): R10.12 - Left upper quadrant pain Plan A/P: 1. Epigastric and left upper quadrant abdominal pain for upper endoscopy and bright red rectal bleeding with some rectal pain for colonoscopy is the preprocedural diagnosis. The patient will be anesthetized/sedated using MAC sedation. The patient has been seen and examined. Cardiac and lung assessment prior to the examination is stable. Proceed with planned diagnostic EGD and colonoscopy.
[2025-07-01] MEDS: LACTATED RINGERS 1000ML 1,000 ML 50 ML IV (07:41)
[2025-07-01 07:44] VITALS: BP 117/71; PULSE 70; RESP 18; TEMP 36.1; O2SAT 97
--- NOTE | 2025-07-01 07:53 | EXP.ANES.CKL ---
[facility] Disclaimer: The information contained in this section may have been updated after the patient was seen, as this information can be updated by other users. Medical History MADELIN (obstructive sleep apnea) Shifting sleep-work schedule Shift work sleep disorder GERD (gastroesophageal reflux disease) Testosterone deficiency Diverticulosis Vitamin D deficiency Hypothyroid Hyperlipidemia Surgical History H/O wisdom tooth extraction Family History Other Hypothyroidism Social History Smoking Status: Never smoker alcohol intake: never substance use type: denies use current occupational status: employed Travel in the last 8 weeks?: None household members: spouse housing: house marital status: Have you lived/traveled outside [place] in past 30 days?: No Contact w/someone who lives/traveled outside [place] past 30 days?: No Exposure to someone with infectious disease in past 14 days?: No Do you have a fever (greater than 100.4 F or 38 C)?: No Have you tested positive for COVID-19?: No Exposed to someone with COVID-19 in past 14 days?: No Do you have a sore throat?: No Do you have a cough?: No Do you have any weakness?: No Do you have any diarrhea?: No Are you experiencing any unusual bleeding?: No Do you have any muscle aches/pain?: No Do you have any abdominal pain?: No Are you experiencing loss of taste or smell?: No [facility] Anesthesia Checklist Patient Identification Patient Identification: Arm Band Structural Data Admitted From: Home Planned Operative Procedure/s: EGD/Colonoscopy Consent for Planned Operative Procedure(s) Verified: Yes Verified Documents: Surgical Consent and History and Physical NPO Status Verified Time NPO: 03:00 Additional verifications Anesthesia Reactions: No Airway Assessment Mallampati Score:: Class II C-Spine Mobility Assessed: Yes TMJ Mobility Assessed: Yes Dentition: Good Dentition Neurological Assessment Level of Consciousness: Awake, Alert and Appropriate Anesthesia Plan Anesthesia Risk discussed: Yes Anesthesia Plan: Verified ASA Class: II Anesthesia Type: MAC
--- NOTE | 2025-07-01 08:30 | P.PCN_ITS ---
[facility] Procedure Note Date: 07/01/25 Time: 08:38 Procedure Note:: Upper Endoscopy Procedure Report: Esophagogastroduodenoscopy with cold biopsies Endoscopost: Darell Luis II, MD Referring Physician: Mk Degroot MD Date of Procedure: July 01, 2025 Equipment: Olympus GIF-1100 standard upper endoscope Sedation: MAC sedation Indications: Mr. Loredo is a 45-year-old gentleman who is here for diagnostic upper endoscopy and colonoscopy. He has had left upper quadrant abdominal pain for over 2 years. He does feel this daily and it is mostly mild but this can become excruciating and he has been to the ED. He did not have improvement with GI cocktail. The patient does have chronic GERD which is controlled with omeprazole and famotidine. He does get some bloating and gassiness. He reports regular bowel function. He has no early satiety. He does report nausea with the severe episodes of pain. He has had no dysphagia. He does report bright red rectal bleeding once or twice a week with blood in the commode. He attributed this to hemorrhoids. He reports no weight loss or family history of colon cancer. His CAT scan of the abdomen had shown some steatosis and gallstones. He has never had an EGD or colonoscopy. Procedure: Prior to the procedure, a history and physical exam was performed, and patient's medications and allergies were reviewed. The risks, benefits and alternatives of the sedation and procedure were discussed with the patient. All questions were answered and informed consent was obtained. The patient was brought to the procedure room. Patient identification and proposed procedure were verified by the physician and the nurse. The patient was placed in a left lateral decubitus position and the scope was passed under direct vision. Throughout the procedure, the patient's blood pressure, pulse, and oxygen saturations were monitored continuously. The upper GI endoscopy was accomplished without difficulty. The patient tolerated the procedure well. Findings: The scope was passed directly into the upper esophagus and advanced to the third and fourth portion of the duodenum. A cold biopsy was taken from the second portion of the duodenum for the disaccharidase assay. The post bulbar duodenum, ampulla and duodenal bulb were normal with normal mucosa and conniventes. The scope was withdrawn through a normal duodenal bulb and pylorus into the stomach. There was some mild linear reactive gastropathy of the antrum. The body and fundus of the stomach were normal. Upon retroflexion there was no hiatal hernia. A cold biopsy was taken from the antrum. The scope was then withdrawn into the esophagus. There was no evidence of reflux esophagitis or Inman's. There were tertiary contractions and evidence of mild to moderate esophageal dysmotility. There was a mid esophageal diverticulum. The remainder of the esophageal mucosa was normal. Impression: 1. Nonerosive GERD with moderate esophageal dysmotility and small mid esophageal diverticulum 2. Mild linear reactive gastropathy of the antrum Plan: I will follow-up the biopsies and disaccharidase assay. I will discuss the findings with the patient and family and proceed with diagnostic colonoscopy.
--- NOTE | 2025-07-01 08:33 | P.PCN_ITS ---
[facility] Procedure Note Date: 07/01/25 Time: 08:53 Procedure Note:: Colonoscopy Procedure Report: Colonoscopy with monopolar ablation/coagulation of internal hemorrhoids Endoscopist: Darell Luis II, MD Referring physician: Mk Degroot MD Date of Procedure: July 01, 2025 Equipment: Olympus [id number] adult colonoscope Sedation: MAC sedation Indication: Mr. Loredo is a 45-year-old gentleman who is here for diagnostic upper endoscopy and colonoscopy. He has had left upper quadrant abdominal pain for over 2 years. He does feel this daily and it is mostly mild but this can become excruciating and he has been to the ED. He did not have improvement with GI cocktail. The patient does have chronic GERD which is controlled with omeprazole and famotidine. He does get some bloating and gassiness. He reports regular bowel function. He has no early satiety. He does report nausea with the severe episodes of pain. He has had no dysphagia. He does report bright red rectal bleeding once or twice a week with blood in the commode. He attributed this to hemorrhoids. He reports no weight loss or family history of colon cancer. His CAT scan of the abdomen had shown some steatosis and gallstones. He has never had an EGD or colonoscopy. Procedure: Prior to the procedure, a history and physical exam was performed, and patient's medications and allergies were reviewed. The risks, benefits and alternatives of the sedation and procedure were discussed with the patient. All questions were answered and informed consent was obtained. The patient was brought to the procedure room. Patient identification and proposed procedure were verified by the physician and the nurse. The patient was placed in a left lateral decubitus position and the scope was passed under direct vision. Throughout the procedure, the patient's blood pressure, pulse, and oxygen saturations were monitored continuously. The colonoscopy was accomplished without difficulty. The patient tolerated the procedure well. Findings: On digital rectal examination there was normal rectal tone. There were no external hemorrhoids. The prostate was 2+, smooth, soft, symmetric without nodules. The colonoscope was introduced through the anal canal to the rectum and advanced to the cecum. The ileocecal valve and appendiceal orifice were identified. The scope was advanced a short distance into the ileum which appeared grossly normal. The scope was then withdrawn into the colon. The cecum, ascending and transverse colon and mucosa were grossly normal. There were scattered diverticuli throughout the descending and sigmoid colon (LEFT colon). The rectum itself was normal. Upon retroflexion within the rectum there were grade 2 internal hemorrhoids. 3 columns of hemorrhoids were ablated/coagulated using monopolar ablation. The preparation was excellent throughout with [place] Preparation Score of 9. The cecal time was 12 minutes. Impression: 1. Left-sided diverticulosis 2. Grade 2 internal hemorrhoids status post monopolar ablation/coagulation Plan: I do feel that the patient has obstipation with splenic flexure syndrome. I would recommend a fiber bowel regimen and consider neuromodulation treatment for functional abdominal pain (splenic flexure syndrome). The patient will not require surveillance colonoscopy again for 10 years by ACS guidelines.
[2025-07-01 08:53] VITALS: BP 88/78; PULSE 77; RESP 16; TEMP 36.3; O2SAT 92
[2025-07-01 09:13] VITALS: BP 109/76; PULSE 84; RESP 16; O2SAT 96
[2025-07-01 09:23] VITALS: BP 114/75; PULSE 84; RESP 16; O2SAT 98
[2025-07-06 15:52] LABS: Interpretation Notes (.); Lactase 0.5 (>/= 14.0); Maltase 68.46 (>/= 110.0); Palatinase 2.98 (>/= 8.5); Reference Notes (.); Sucrase 7.94 (>/= 25.0)
== END | disposition home or self-care (01) ==
PROVIDERS: PCP Family Medicine; Visit Provider Internal Medicine Gastroenterology
PROC: 0DJ08ZZ Inspection of Upper Intestinal Tract, Via Natural or Artificial Opening Endoscopic (ICD-10-PCS; CPT 45378; principal; 2025-07-01 08:30)
DX: K29.50 Unspecified chronic gastritis without bleeding (principal); K21.9 Gastro-esophageal reflux disease without esophagitis; K31.89 Other diseases of stomach and duodenum; K22.4 Dyskinesia of esophagus; K22.5 Diverticulum of esophagus, acquired; K57.30 Diverticulosis of large intestine without perforation or abscess without bleeding; K64.1 Second degree hemorrhoids; K62.5 Hemorrhage of anus and rectum; E03.9 Hypothyroidism, unspecified; E78.5 Hyperlipidemia, unspecified
CPT/HCPCS: 43239; 46930; 82657; J2003; J2704; J7120